=== PATIENT | female | born 1950 | race Caucasian/White ===

== ENCOUNTER 2020-04-28 13:27 | Inpatient (IN) | payer OTHER ==
[2020-04-28] MEDS: SODIUM CHLORIDE 1,000 ML IV SCH (14:00)
[2020-04-28 14:19] VITALS: BMI 25.3
[2020-04-28 15:21] LABS: BASO % 0.6 % (0-2.0); HEMOGLOBIN 13.5 GM/dL (10.7-15.3); LYMPH % 25.3 % (8-40); MCH 26.6 pg (25.7-33.7); MCHC 32.1 g/dl (32.0-36.0); MEAN CELL VOLUME 82.9 fl (80-96); MEAN PLT VOLUME 9.3 fl (7.5-11.1); MONO % 7.3 % (3.8-10.2); NEUT % 65.8 % (42.8-82.8); PLATELET COUNT 184 K/MM3 (134-434); RBC 5.06 M/mm3 (3.60-5.2); RDW 13.6 % (11.6-15.6); WHITE BLOOD COUNT 4.9 K/mm3 (4.0-10.0)
[2020-04-28] MEDS ORDERED: ATORVASTATIN CA 80 MG TABLET (FP) PO ONE (15:23)
[2020-04-28] MEDS ORDERED: ASPIRIN 81 MG CHEWABLE TABLETS PO ONE (15:23)
[2020-04-28] MEDS ORDERED: ASPIRIN 81 MG CHEWABLE TABLETS ONE (15:25)
[2020-04-28] MEDS ORDERED: ATORVASTATIN CA 80 MG TABLET (FP) ONE (15:26)
[2020-04-28 15:27] LABS: INR 1.03 (0.83-1.09); PROTHROMBIN TIME (PATIENT) 12.4 SEC (9.7-13.0)
[2020-04-28 15:28] LABS: PH,URINE 7.5 (5.0-8.0); URINE APPEARANCE CLEAR; URINE BILIRUBIN NEGATIVE (NEGATIVE); URINE COLOR YELLOW; URINE GLUCOSE (UA) NEGATIVE (NEGATIVE); URINE KETONE NEGATIVE (NEGATIVE); URINE LEUK ESTERASE NEGATIVE (NEGATIVE); URINE NITRITE NEGATIVE (NEGATIVE); URINE PROTEIN NEGATIVE (NEGATIVE); URINE UROBILINOGEN 0.2 mg/dL (0.2-1.0)
[2020-04-28 15:30] LABS: ACTIVATED PTT 29.6 SECONDS (25.2-36.5)
[2020-04-28 15:31] LABS: POTASSIUM 3.7 mmol/L (3.5-5.1)
[2020-04-28 15:34] LABS: CALCIUM 8.8 mg/dL (8.5-10.1)
[2020-04-28 15:35] LABS: BLOOD UREA NITROGEN 6.7 mg/dL (7-18)
[2020-04-28 15:36] LABS: CHOLESTEROL 250 mg/dL (50-200)
[2020-04-28 15:37] LABS: LDL CHOLESTEROL (ONLY SJRH) 139 mg/dL (5-100); TRIGLYCERIDES 46 mg/dL (0-150)
[2020-04-28 15:38] LABS: CREATININE 0.6 mg/dL (0.55-1.3)
[2020-04-28 15:39] LABS: BILIRUBIN,TOTAL 0.4 mg/dL (0.2-1); HDL CHOLESTEROL 104 mg/dL (40-60); TOT PROT 7.3 g/dl (6.4-8.2)
[2020-04-28] MEDS ORDERED: DEXTROSE 5%-NORMAL SALINE 1,000 ML IV SCH (18:00)
[2020-04-29 07:51] LABS: POTASSIUM 3.7 mmol/L (3.5-5.1)
[2020-04-29 08:00] LABS: CALCIUM 8.7 mg/dL (8.5-10.1)
[2020-04-29 08:01] LABS: ALBUMIN 3.6 g/dl (3.4-5.0); BLOOD UREA NITROGEN 4.9 mg/dL (7-18); MAGNESIUM 2.1 mg/dL (1.8-2.4)
[2020-04-29 08:04] LABS: BILIRUBIN,TOTAL 0.4 mg/dL (0.2-1); CREATININE 0.5 mg/dL (0.55-1.3); PHOSPHOROUS 3.3 mg/dL (2.5-4.9); TOT PROT 6.6 g/dl (6.4-8.2)
[2020-04-29 08:10] LABS: BASO % 0.5 % (0-2.0); EOS % 0.8 % (0-4.5); HEMATOCRIT 41.1 % (32.4-45.2); HEMOGLOBIN 13.4 GM/dL (10.7-15.3); MCH 26.8 pg (25.7-33.7); MCHC 32.5 g/dl (32.0-36.0); MEAN CELL VOLUME 82.5 fl (80-96); MEAN PLT VOLUME 9.4 fl (7.5-11.1); MONO % 6.9 % (3.8-10.2); NEUT % 72.8 % (42.8-82.8); PLATELET COUNT 165 K/MM3 (134-434); RBC 4.98 M/mm3 (3.60-5.2); RDW 13.3 % (11.6-15.6); WHITE BLOOD COUNT 5.6 K/mm3 (4.0-10.0)
[2020-04-29] MEDS ORDERED: ASPIRIN 325 MG ENTERIC COATED TABLET (FP) ONE (10:42)
[2020-04-29] MEDS: ASPIRIN 325 MG ENTERIC COATED TABLET (FP) PO SCH (10:43)
[2020-04-29] MEDS ORDERED: ATORVASTATIN CA 80 MG TABLET (FP) PO SCH (22:00)
[2020-04-29] MEDS ORDERED: TIMOLOL 0.5% OPHTHALMIC SOL 5 ML BOTTLE OU SCH (22:00)
[2020-04-29] MEDS ORDERED: LATANOPROST 0.005% OPHTH SOLN 2.5ML BOTTLE OU SCH (22:00)
[2020-04-30 07:17] LABS: HEMATOCRIT 41.3 % (32.4-45.2); HEMOGLOBIN 13.5 GM/dL (10.7-15.3); MCHC 32.6 g/dl (32.0-36.0); MEAN CELL VOLUME 82.8 fl (80-96); MEAN PLT VOLUME 9.1 fl (7.5-11.1); PLATELET COUNT 165 K/MM3 (134-434); RBC 4.99 M/mm3 (3.60-5.2); RDW 13.3 % (11.6-15.6); WHITE BLOOD COUNT 5.3 K/mm3 (4.0-10.0)
[2020-04-30 07:46] LABS: BLOOD UREA NITROGEN 16.3 mg/dL (7-18); CALCIUM 8.6 mg/dL (8.5-10.1)
[2020-04-30] MEDS: SODIUM CHLORIDE 1,000 ML IV SCH (07:46)
[2020-04-30 07:50] LABS: CREATININE 0.6 mg/dL (0.55-1.3)
[2020-04-30] MEDS: ASPIRIN 325 MG ENTERIC COATED TABLET (FP) PO SCH (10:11)
[2020-04-30 13:48] VITALS: BP 126/81; PULSE 82; TEMP 98.3
== END 2020-04-30 17:48 | disposition home health service (06) | DRG 65 ==
LOC: JER 13:27 → JERBED 17:04 → J4S 04-29 14:07
PROVIDERS: ATTEND Internal Medicine
DX: I63.9 Cerebral infarction, unspecified (principal); G81.94 Hemiplegia, unspecified affecting left nondominant side; R29.702 NIHSS score 2; E05.90 Thyrotoxicosis, unspecified without thyrotoxic crisis or storm; R29.810 Facial weakness; I63.81 Other cerebral infarction due to occlusion or stenosis of small artery; R47.1 Dysarthria and anarthria
CPT/HCPCS: 36415; 70450-TC; 70496-TC; 70498-TC; 70551-TC; 80048; 80053; 80061; 81003; 82550; 82553; 83036; 83721; 83735; 84100; 84436; 84443; 84484; 85025; 85027; 85610; 85730; 86850; 86900; 86901; 93005; 93010; 93306-TC; 93880-TC; 97116-GP; 97162-GP; 99285-25; C9803; U0003